=== PATIENT | female | born 1955 | race Caucasian/White ===

== ENCOUNTER 2019-02-13 20:03 | Emergency (ER) | payer OTHER ==
[2019-02-13 20:32] VITALS: BP 203/75; PULSE 66
[2019-02-13] MEDS ORDERED: Acetaminophen 500 MG Tab PO ONE (20:48)
--- NOTE | 2019-02-13 20:54 | EDM.PDOC ---
ED HPI GENERAL MEDICAL PROBLEM - General Chief Complaint: General Stated Complaint: FELL AND WHOLE BODY HURTS Time Seen by Provider: 02/13/19 20:40 Source of Information: Reports: Patient, Family, Old Records History Limitations: Reports: No Limitations - History of Present Illness INITIAL COMMENTS - FREE TEXT/NARRATIVE: 63 yo female tripped and fell on her deck at home. Injury was about 2.5 hrs ago. No LOC or neck pain. Is on Plavix and ASA. Has bruising of her chin, L arm and L foot. Has some sternal tenderness without bruising. Onset: Today Onset Date: 02/13/19 Duration: Hour(s):, Constant Location: Reports: Face (chin), Chest (sternum), Upper Extremity, Right, Lower Extremity, Left Quality: Reports: Dull Severity: Mild Improves with: Reports: Rest Worsens with: Reports: Movement Context: Reports: Trauma Associated Symptoms: Reports: No Other Symptoms Treatments [employer] OPERATOR: Reports: Other (see below) (none) - Related Data Allergies Allergy/AdvReac Type Severity Reaction Status Date / Time Penicillins Allergy Other Verified 05/14/16 02:02 Home Meds: Home Meds Aspirin/Dipyridamole [Aggrenox 25 mg-200 mg Capsule] 1 each PO BID 05/14/16 [ History] Atenolol [Tenormin] 50 mg PO BID 05/14/16 [History] Cranberry Fruit Extract [Cranberry] 500 mg PO DAILY 05/14/16 [History] Enalapril [Vasotec] 20 mg PO BID 05/14/16 [History] Gabapentin [Neurontin] 200 mg PO BEDTIME 05/14/16 [History] Nabumetone [Relafen] 500 mg PO TID 05/14/16 [History] Soy Isoflavone [Soy Isoflavones] 40 mg PO DAILY 05/14/16 [History] atorvaSTATin [Lipitor] 40 mg PO BEDTIME 05/14/16 [History] metFORMIN [Glucophage] 1,000 mg PO BIDMEALS 05/14/16 [History] Isosorbide Mononitrate [Imdur] 30 mg PO DAILY #30 tab.er 05/15/16 [Rx] Nitroglycerin [IJP: Nitroglycerin] 0.4 mg SL Q5M PRN #30 tablet, sublingual [Rx] Past Medical History HEENT History: Reports: Impaired Vision Cardiovascular History: Reports: Hypertension, NC, Stents Gastrointestinal History: Reports: Colon Polyp [employer] ADMINISTRATOR History: Reports: Neurological History: Reports: TIA Endocrine/Metabolic History: Reports: Diabetes, Type II Hematologic History: Reports: Anticoagulation Therapy Other Hematologic History: agranox - Infectious Disease History Infectious Disease History: Reports: Chicken Pox - Past Surgical History Cardiovascular Surgical History: Reports: Coronary Artery Stent Social & Family History - Caffeine Use Caffeine Use: Reports: None Caffeine Use Comment: 2 cups coffee - Living Situation & Occupation Living situation: Reports: Occupation: Employed ED ROS GENERAL - Review of Systems Review Of Systems: See Below Constitutional: Reports: No Symptoms HEENT: Reports: No Symptoms Respiratory: Reports: Other (sternal tenderness with deep breathing.) Cardiovascular: Reports: No Symptoms GI/Abdominal: Reports: No Symptoms : Reports: No Symptoms Musculoskeletal: Reports: Foot Pain (Left) Skin: Reports: Bruising (R arm, L foot, chin) Neurological: Reports: No Symptoms ED EXAM, GENERAL - Physical Exam Exam: See Below Exam Limited By: No Limitations General Appearance: Alert, WD/WN, No Apparent Distress Eye Exam: Bilateral Eye: Normal Inspection Ears: Normal External Exam, Normal Canal, Hearing Grossly Normal Ear Exam: Bilateral Ear: Auricle Normal, Canal Normal Nose: Normal Inspection, No Blood Throat/Mouth: Normal Lips, Normal Teeth, Normal Oropharynx, Normal Voice, No Airway Compromise, Other (small R sided tongue laceration with no continued bleeding. Teeth all intact.) Head: Other (chin bruising, no pain with opening or closing mouth) Neck: Normal Inspection, Supple, Non-Tender, Full Range of Motion Respiratory/Chest: No Respiratory Distress, Lungs Clear, Normal Breath Sounds, No Accessory Muscle Use, Other (sternal tenderness without crepitus or bruising. ). No: Chest Non-Tender Cardiovascular: Regular Rate, Rhythm, No Edema GI/Abdominal: Non-Tender Extremities: Other (L foot quite bruised medially, but able to bear weight. ) Neurological: Alert, Oriented, CN II-XII Intact, Normal Cognition, No Motor/ Sensory Deficits Psychiatric: Normal Affect, Normal Mood Skin Exam: Warm, Dry, Intact, No Rash, Ecchymosis (small bruise R lateral arm, chin bruised. L medial foot is bruised.) Course - Vital Signs Last Recorded V/S: Last Vital Signs Temp 36.8 C 02/13/19 20:31 Pulse 66 02/13/19 20:31 Resp 18 02/13/19 20:31 BP 203/75 H 02/13/19 20:31 Pulse Ox 99 02/13/19 20:31 - Orders/Labs/Meds Orders: Active Orders 24 hr Category Date Time Status Foot Comp Min 3V Lt [CR] Stat Exams 02/13/19 20:48 Taken Meds: Medications Discontinued Medications Generic Name Dose Route Start Last Admin Trade Name Suzan PRN Reason Stop Dose Admin Acetaminophen 1,000 mg 02/13/19 20:48 Tylenol Extra Strength PO 02/13/19 20:49 ONETIME ONE - Radiology Interpretation Free Text/Narrative:: L foot X-ray-neg Departure - Departure Time of Disposition: 21:10 Disposition: Home, Self-Care 01 Condition: Fair Clinical Impression: Traumatic ecchymosis of multiple sites - Discharge Information *PRESCRIPTION DRUG MONITORING PROGRAM REVIEWED*: No *COPY OF PRESCRIPTION DRUG MONITORING REPORT IN PATIENT ETHAN: No Referrals: Olive Pepe PA [Primary Care Provider] - Forms: ED Department Discharge Additional Instructions: Take acetaminophen as needed for pain relief. Recheck as needed. - My Orders Last 24 Hours: My Active Orders 02/13/19 20:48 Foot Comp Min 3V Lt [CR] Stat - Assessment/Plan Last 24 Hours: My Active Orders 02/13/19 20:48 Foot Comp Min 3V Lt [CR] Stat
--- NOTE | 2019-02-13 21:39 | CRLCR ---
INDICATION: Fall, foot pain and bruising medial side TECHNIQUE: Foot radiograph 3 views left COMPARISON: None FINDINGS: Bone: No acute fractures or aggressive bone lesions are identified. 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 No significant bone proliferation seen over the medial eminence of 1st metatarsal head. Joint: The visualized hindfoot, midfoot, and forefoot joints are unremarkable in appearance. No significant ankle effusion is seen. Soft tissue: Moderate soft tissue vascular calcifications are noted. No radiopaque foreign bodies are seen. IMPRESSION: 1. No acute osseous injuries or abnormalities are noted. Dictated by Benoit Parson MD @ 02/13/2019 9:39:19 PM Dictated by: Benoit Parson MD @ 02/13/2019 21:39:25 (Electronically Signed)
== END 2019-02-13 21:56 | disposition home or self-care (01) ==
LOC: JP.ED 20:03
DX: S01.512A Laceration without foreign body of oral cavity, initial encounter (principal); S90.32XA Contusion of left foot, initial encounter; S40.021A Contusion of right upper arm, initial encounter; I10 Essential (primary) hypertension; E11.9 Type 2 diabetes mellitus without complications; Z79.899 Other long term (current) drug therapy; Z79.82 Long term (current) use of aspirin; Z79.02 Long term (current) use of antithrombotics/antiplatelets; Z88.0 Allergy status to penicillin; W01.0XXA Fall on same level from slipping, tripping and stumbling without subsequent striking against object, initial encounter
CPT/HCPCS: 73630; 99283; A9270

== ENCOUNTER 2022-04-28 17:15 | Emergency (ER) | payer MEDICARE ==
[2022-04-28 17:21] VITALS: BP 178/98; PULSE 108
== END 2022-04-28 18:01 | disposition home or self-care (01) ==
LOC: JP.ED 17:15
DX: I97.648 Postprocedural seroma of a circulatory system organ or structure following other circulatory system procedure (principal); I10 Essential (primary) hypertension; I25.2 Old myocardial infarction; E11.9 Type 2 diabetes mellitus without complications; Z79.899 Other long term (current) drug therapy; Z88.0 Allergy status to penicillin; Z79.01 Long term (current) use of anticoagulants
CPT/HCPCS: 99283

== ENCOUNTER 2024-03-15 10:52 | Observation (INO) | payer MEDICARE ==
[2024-03-15] MEDS ORDERED: Sodium Chloride 0.9% 10 ML Syringe FLUSH PRN (11:17)
[2024-03-15 11:29] LABS: BASOPHILS ABSOLUTE AUTO 0.09 K/uL (0.00-0.10); BASOPHILS PERCENT AUTO 0.6 % (0.1-1.3); EOSINOPHILS ABSOLUTE AUTO 0.11 K/uL (0.00-0.40); EOSINOPHILS PERCENT AUTO 0.7 % (0.0-5.4); HEMATOCRIT 41.2 % (34.3-46.0); HEMOGLOBIN 13.7 g/dL (11.2-15.5); IMMATURE GRAN PERCENT AUTO 1.9 % (0.0-0.7); LYMPHOCYTES ABSOLUTE AUTO 2.02 K/uL (0.8-3.3); LYMPHOCYTES PERCENT AUTO 12.7 % (11.4-47.7); MEAN CORPUSCULAR HEMOGLOBIN 28.4 pg (31.6-35.5); MEAN CORPUSCULAR HGB CONC 33.3 g/dL (31.6-35.5); MEAN CORPUSCULAR VOLUME 85.5 fL (81.4-99.0); MONOCYTES ABSOLUTE AUTO 0.45 K/uL (0.20-0.90); MONOCYTES PERCENT AUTO 2.8 % (3.3-12.6); NEUTROPHILS ABSOLUTE AUTO 12.91 K/uL (1.0-7.6); NEUTROPHILS PERCENT AUTO 81.3 % (40.0-78.1); PLATELET COUNT,PLT 434 K/uL (130-375); RED BLOOD CELL COUNT 4.82 M/uL (3.77-5.24); WHITE BLOOD CELL COUNT,WBC 15.9 K/uL (3.2-11.0)
[2024-03-15 11:53] LABS: A/G RATIO 0.8 (1.2-2.2); ALANINE AMINOTRANSFERASE,ALT 26 U/L (12-78); ALKALINE PHOSPHATASE 140 U/L (46-116); ASPARTATE AMNIOTRANSFERASE,AST 37 U/L (15-37); BILIRUBIN TOTAL 0.7 mg/dL (0.2-1.0); BLOOD UREA NITROGEN,BUN 28 mg/dL (7-18); CALCIUM 10.5 mg/dL (8.5-10.1); CARBON DIOXIDE,CO2 17 mmol/L (21-32); CHLORIDE,CL 99 mmol/L (100-108); CREATININE 2.4 mg/dL (0.6-1.0); EST CRCL DRUG DOSING (CG) 21.51 mL/min; ESTIMATED GFR 21 mL/min (>60); GLUCOSE RANDOM 320 mg/dL (74-106); POTASSIUM,K 4.8 mmol/L (3.6-5.2); PROTEIN TOTAL,TP 6.7 g/dL (6.4-8.2); SODIUM,NA 133 mmol/L (140-148); TROPONIN I HIGH SENSITIVITY 56.8 pg/mL (<=60.3)
[2024-03-15 11:56] LABS: ANION GAP 21.8 mmol/L (5.0-14.0)
[2024-03-15] MEDS: Sodium Chloride 0.9% 1,000 ML IV ONE ×2 (12:04→13:42)
[2024-03-15] MEDS: cefTRIAXone 2 GM in Sodium Chloride 0.9% 50 ML IV ONE (13:42)
[2024-03-15 13:46] LABS: APPEARANCE,URINE SLIGHTLY CLOUDY (CLEAR); BILIRUBIN,URINE NEGATIVE (NEGATIVE); COLOR,URINE YELLOW (YELLOW); GLUCOSE,URINE NEGATIVE (NEGATIVE); KETONES,URINE NEGATIVE (NEGATIVE); LEUKOCYTE ESTERASE,URINE TRACE (NEGATIVE); NITRITE,URINE NEGATIVE (NEGATIVE); OCCULT BLOOD,URINE NEGATIVE (NEGATIVE); PH,URINE 6.5 (5.0-8.0); PROTEIN,URINE 100 mg/dL (NEGATIVE); UROBILINOGEN,URINE 0.2 EU/dL (0.2-1.0)
[2024-03-15 13:55] LABS: AMORPHOUS SEDIMENT,URINE MODERATE; BACTERIA,URINE RARE; EPITHELIAL CELLS,URINE NOT SEEN; MUCUS,URINE NOT SEEN; RBC,URINE NOT SEEN (0-5)
[2024-03-15] MEDS: Acetaminophen 325 MG Tab PO ONE (19:01)
[2024-03-15] MEDS: Bisacodyl 5 MG Tab PO ONE (19:22)
[2024-03-15] MEDS ORDERED: Sennosides/Docusate Sodium 50-8.6 MG Tab PO PRN (19:46)
[2024-03-15] MEDS ORDERED: oxyCODONE 5 MG Tab PO PRN (19:46)
[2024-03-15] MEDS ORDERED: Magnesium Hydroxide 400 MG/5 ML Susp 30 ML Cup PO PRN (19:46)
[2024-03-15] MEDS ORDERED: Ondansetron 4 MG Tab.DIS PO PRN (19:46)
[2024-03-15] MEDS ORDERED: Ondansetron 4 MG/2 ML SDV IV PRN (19:46)
[2024-03-15] MEDS ORDERED: Albuterol 0.083% 2.5 MG/3 ML Neb Soln NEB PRN (19:46)
[2024-03-15] MEDS: Gabapentin 300 MG Cap PO ONE (21:41)
[2024-03-15] MEDS: Apixaban 5 MG Tab PO ONE (21:41)
[2024-03-15] MEDS: Metoprolol Tartrate 25 MG Tab PO ONE (21:41)
[2024-03-15] MEDS: atorvaSTATin 20 MG Tab PO ONE (21:42)
[2024-03-16] MEDS: Polyethylene Glycol 3350 Powder 119 GM Bottle PO ONE (01:32)
[2024-03-16 04:41] LABS: HEMATOCRIT 34.8 % (34.3-46.0); HEMOGLOBIN 11.8 g/dL (11.2-15.5); MEAN CORPUSCULAR HEMOGLOBIN 28.7 pg (31.6-35.5); MEAN CORPUSCULAR HGB CONC 33.9 g/dL (31.6-35.5); MEAN CORPUSCULAR VOLUME 84.7 fL (81.4-99.0); RED BLOOD CELL COUNT 4.11 M/uL (3.77-5.24); WHITE BLOOD CELL COUNT,WBC 24.4 K/uL (3.2-11.0)
[2024-03-16] MEDS: Acetaminophen 325 MG Tab PO PRN (04:41)
[2024-03-16 05:15] LABS: CALCIUM 9.8 mg/dL (8.5-10.1); CREATININE 2.5 mg/dL (0.6-1.0); EST CRCL DRUG DOSING (CG) 20.65 mL/min
[2024-03-16] MEDS ORDERED: Levothyroxine 50 MCG Tab PO SCH (07:30)
[2024-03-16] MEDS ORDERED: glipiZIDE 2.5 MG Tab.ER PO SCH (08:00)
[2024-03-16] MEDS ORDERED: Metoprolol Tartrate 25 MG Tab PO SCH (09:00)
[2024-03-16] MEDS ORDERED: Apixaban 5 MG Tab PO SCH (09:00)
[2024-03-16] MEDS ORDERED: Amiodarone 200 MG Tab PO SCH (09:00)
[2024-03-16] MEDS: Aspirin 81 MG Tab.EC PO SCH (10:41)
[2024-03-16] MEDS: APIXABAN 5 MG PO SCH (10:42)
[2024-03-16] MEDS: AMIODARONE 200 MG PO SCH (10:42)
[2024-03-16] MEDS: Metoprolol Tartrate 50 MG Tab*POM PO SCH (10:44)
[2024-03-16] MEDS: GLIPIZIDE 2.5 MG PO SCH (10:44)
[2024-03-16] MEDS ORDERED: Levothyroxine 50 MCG Tab*POM PO SCH (11:00)
[2024-03-16 11:51] VITALS: BP 155/57; PULSE 69
[2024-03-16] MEDS ORDERED: Gabapentin 300 MG Cap*POM PO SCH (21:00)
[2024-03-16] MEDS ORDERED: ATORVASTATIN 40 MG PO SCH (21:00)
[2024-03-17] MEDS ORDERED: CRANBERRY FRUIT EXTRACT 500 MG PO SCH (09:00)
== END 2024-03-16 13:38 | disposition home or self-care (01) ==
LOC: JP.ED 10:52 → JP.MS 18:24
PROVIDERS: ADMIT Internal Medicine; ATTEND Internal Medicine
DX: R55 Syncope and collapse (principal); K59.01 Slow transit constipation; E11.22 Type 2 diabetes mellitus with diabetic chronic kidney disease; I12.9 Hypertensive chronic kidney disease with stage 1 through stage 4 chronic kidney disease, or unspecified chronic kidney disease; N18.4 Chronic kidney disease, stage 4 (severe); I25.10 Atherosclerotic heart disease of native coronary artery without angina pectoris; E11.42 Type 2 diabetes mellitus with diabetic polyneuropathy; Z79.84 Long term (current) use of oral hypoglycemic drugs; Z79.899 Other long term (current) drug therapy
CPT/HCPCS: 36415; 70450; 70450-26; 71250; 71250-26; 73564-26-LT; 73564-LT; 74176; 74176-26; 80048; 80053; 81001; 83605; 84145; 84439; 84443; 84484; 85025; 85027; 87040; 93005; 96361; 96365; 99222; 99238; 99285-25; A9270-GY; G0378; J0696; J3490; J7030

== ENCOUNTER 2025-06-19 14:03 | Emergency (ER) | payer MEDICARE ==
[2025-06-19 14:52] LABS: BASOPHILS ABSOLUTE AUTO 0.09 K/uL (0.00-0.10); BASOPHILS PERCENT AUTO 0.7 % (0.1-1.3); EOSINOPHILS ABSOLUTE AUTO 0.07 K/uL (0.00-0.40); EOSINOPHILS PERCENT AUTO 0.5 % (0.0-5.4); IMMATURE GRAN ABSOLUTE AUTO 0.17 K/uL (0.00-0.23); IMMATURE GRAN PERCENT AUTO 1.3 % (0.0-0.7); LYMPHOCYTES ABSOLUTE AUTO 1.39 K/uL (0.8-3.3); LYMPHOCYTES PERCENT AUTO 10.4 % (11.4-47.7); MONOCYTES ABSOLUTE AUTO 0.36 K/uL (0.20-0.90); MONOCYTES PERCENT AUTO 2.7 % (3.3-12.6); NEUTROPHILS ABSOLUTE AUTO 11.33 K/uL (1.0-7.6); NEUTROPHILS PERCENT AUTO 84.4 % (40.0-78.1); PLATELET COUNT,PLT 393 K/uL (130-375); RED BLOOD CELL COUNT 4.17 M/uL (3.77-5.24); WHITE BLOOD CELL COUNT,WBC 13.4 K/uL (3.2-11.0)
[2025-06-19 15:04] LABS: BASE EXCESS VENOUS -10.9 mm/L; BICARBONATE,VENOUS 16.3 mmol/L; O2 SATURATION VENOUS 38.5; OXYHEMOGLOBIN 37.8 %; PCO2 VENOUS 42.3 mm/Hg; PH,VENOUS 7.210 (7.350-7.450); TOTAL HEMOGLOBIN 13.4 g/dL (12.0-16.0)
[2025-06-19 15:09] LABS: PO2 VENOUS 30.1 mm/Hg
[2025-06-19 16:22] LABS: A/G RATIO 0.7 (1.2-2.2); ALANINE AMINOTRANSFERASE,ALT 35 U/L (12-78); ASPARTATE AMNIOTRANSFERASE,AST 37 U/L (15-37); BILIRUBIN TOTAL 0.5 mg/dL (0.2-1.0); BLOOD UREA NITROGEN,BUN 20 mg/dL (7-18); CHLORIDE,CL 96 mmol/L (100-108); CREATININE 2.4 mg/dL (0.6-1.0); EST CRCL DRUG DOSING (CG) 20.42 mL/min; ESTIMATED GFR 21 mL/min (>60); GLUCOSE RANDOM 246 mg/dL (74-106); POTASSIUM,K 4.1 mmol/L (3.6-5.2); PROTEIN TOTAL,TP 5.0 g/dL (6.4-8.2); SODIUM,NA 127 mmol/L (140-148); TROPONIN I HIGH SENSITIVITY 34.6 pg/mL (<=60.3)
[2025-06-19 16:23] LABS: CARBON DIOXIDE,CO2 15 mmol/L (21-32)
[2025-06-19 16:30] LABS: APPEARANCE,URINE CLEAR (CLEAR); GLUCOSE,URINE NEGATIVE (NEGATIVE); OCCULT BLOOD,URINE NEGATIVE (NEGATIVE)
[2025-06-19 16:38] LABS: SQUAMOUS EPITHELIAL CELLS,UR FEW /HPF; UROTHELIAL CELLS,URINE NOT SEEN /HPF
[2025-06-19] MEDS ORDERED: Naloxone 0.4 MG/ML SDV IVPUSH PRN (17:21)
[2025-06-19] MEDS: fentaNYL 50 MCG/ML SDV IVPUSH ONE (17:41)
[2025-06-19 17:47] VITALS: BP 96/61; PULSE 72
[2025-06-19] MEDS: Norepinephrine Bit/D5W Premix 4 MG/250 ML BAG IV SCH (18:23)
== END 2025-06-19 18:37 ==
LOC: JP.ED 14:03
DX: R10.819 Abdominal tenderness, unspecified site (principal); I10 Essential (primary) hypertension; I48.91 Unspecified atrial fibrillation; E11.40 Type 2 diabetes mellitus with diabetic neuropathy, unspecified; E03.9 Hypothyroidism, unspecified; Z88.0 Allergy status to penicillin; Z88.8 Allergy status to other drugs, medicaments and biological substances; Z79.890 Hormone replacement therapy; Z79.899 Other long term (current) drug therapy; Z79.82 Long term (current) use of aspirin
CPT/HCPCS: 36415; 51702; 71275; 74174; 80053; 81001; 82272; 82803; 83605; 83690; 84484; 85025; 86140; 86850; 86900; 86901; 93005; 93010; 96361; 96374; 96375; 99285; J3010; J7030; J7040